=== PATIENT | male | born 1940 | race Two or more races ===

== ENCOUNTER 2020-09-26 15:17 | Inpatient (IN) | payer MEDICARE, MEDICAID ==
[~2020-09-26] VITALS: Ht 162.6 cm; Wt 64.0 kg
[2020-09-26 17:28] LABS: Basophils # (auto) 0.1 10 ^3/uL (0-0.2); Eosinophils # (auto) 0 10 ^3/uL (0-0.8); Eosinophils % (auto) 0.1 % (0.0-7.0); Red Cell Distribution Width 14.1 % (11.8-14.3)
[2020-09-26 17:33] LABS: Albumin 3.4 g/dL (3.4-5.0); Anion Gap 5 (5-15); Blood Urea Nitrogen 19 mg/dL (7-18); Calcium 8.9 mg/dL (8.5-10.1); Carbon Dioxide 26 mmol/L (21-32); Chloride 110 mmol/L (98-107); Glucose 119 mg/dL (74-106); Lipase 111 U/L (73-393); Potassium 3.7 mmol/L (3.5-5.1); Sodium 141 mmol/L (136-145)
[2020-09-26 17:34] LABS: Basophils % (auto) 0.5 % (0.0-2.0); Hematocrit 39.1 % (41.0-53.0); Hemoglobin 12.9 g/dL (13.5-17.5); Lymphocytes # (auto) 1.6 10 ^3/uL (0.4-5.4); Lymphocytes % (auto) 9.2 % (10.0-50.0); Mean Corpuscular Hgb Conc. 33.1 g/dL (32.0-36.0); Mean Corpuscular Volume 90.7 fL (80.0-100.0); Monocytes # (auto) 0.5 10 ^3/uL (0-1.3); Monocytes % (auto) 3.1 % (0.0-12.0); Neutrophils # (auto) 14.9 10 ^3/uL (1.6-8.6); Neutrophils % (auto) 87.1 % (37.0-80.0); Platelet Count (auto) 386 10^3/uL (140-450); Red Blood Cells 4.31 10^6/uL (4.5-5.90); White Blood Cell 17.1 10^3/uL (4.4-10.8)
[2020-09-26 17:42] LABS: Alanine Aminotransferase 25 U/L (16-61); Alkaline Phosphatase 147 U/L (45-117); Aspartate Aminotransferase 16 U/L (15-37); BUN/Creatinine Ratio 11.6; Bilirubin, Total 0.9 mg/dL (0.2-1.0); GFR African American 53 mL/min; GFR Non-African American 43 mL/min; Total Protein 7.5 g/dL (6.4-8.2)
[2020-09-26] MEDS ORDERED: cefTRIAXone 1GM/50ML D5W 50 ML IV ONE (21:45)
[2020-09-26] MEDS ORDERED: metroNIDAZOLE 500MG/100ML 100 ML IV ONE (21:45)
[2020-09-27] MEDS ORDERED: SODIUM CHLORIDE 0.9% 1,000 ML IV ONE (01:00)
[2020-09-27] MEDS ORDERED: PANTOPRAZOLE 40 MG/10 ML VIAL INJ IV ONE (01:00)
[2020-09-27] MEDS ORDERED: MORPHINE SULF INJ 2 MG/ML SYRINGE 1ML IV PRN (01:00)
[2020-09-27] MEDS ORDERED: ONDANSETRON HCL 4 MG/2 ML VIAL IV PRN (01:00)
[2020-09-27] MEDS ORDERED: NITROGLYCERIN 0.4 MG SL TAB SL PRN (01:00)
[2020-09-27] MEDS ORDERED: MORPHINE SULFATE 4 MG/ML SYR/VIAL IV PRN (01:00)
[2020-09-27] MEDS ORDERED: metroNIDAZOLE 500MG/100ML 100 ML IV SCH (06:00)
[2020-09-27] MEDS ORDERED: cefTRIAXone 1GM/50ML D5W 50 ML IV SCH (09:00)
[2020-09-27] MEDS: PANTOPRAZOLE 40 MG/10 ML VIAL INJ IV SCH (10:00)
[2020-09-27] MEDS ORDERED: OMNIPAQUE ORAL SOLN 500ml 12mg/ml PO ONE (10:07)
[2020-09-27 10:44] LABS: INR 1.06 (0.9-1.15); Partial Thromboplastin Time 35.3 sec (23.0-31.2)
[2020-09-27] MEDS: cefTRIAXone 1GM/50ML D5W 50 ML IV SCH (11:26)
[2020-09-27] MEDS: metroNIDAZOLE 500MG/100ML 100 ML IV SCH ×2 (11:30→19:00)
[2020-09-27] MEDS: SODIUM CHLORIDE 0.9% 1,000 ML IV SCH ×2 (15:00→15:03)
[2020-09-27 20:55] LABS: Urine Bacteria FEW /hpf (None Seen); Urine Blood 1+ /uL (Negative); Urine Hyaline Cast FEW /lpf (0 - 2); Urine Specific Gravity 1.011 (1.001-1.035); Urine WBC 3 /hpf (0 - 3)
[2020-09-28] MEDS: metroNIDAZOLE 500MG/100ML 100 ML IV SCH ×3 (07:23→19:31)
[2020-09-28] MEDS: SODIUM CHLORIDE 0.9% 1,000 ML IV SCH ×2 (07:23→19:30)
[2020-09-28] MEDS ORDERED: cloNIDine HCL 0.1 MG TAB PO ONE (08:30)
[2020-09-28] MEDS: cefTRIAXone 1GM/50ML D5W 50 ML IV SCH (08:43)
[2020-09-28 08:56] LABS: Basophils # (auto) 0.1 10 ^3/uL (0-0.2); Basophils % (auto) 0.5 % (0.0-2.0); Eosinophils # (auto) 0.1 10 ^3/uL (0-0.8); Eosinophils % (auto) 0.4 % (0.0-7.0); Hematocrit 38.1 % (41.0-53.0); Hemoglobin 12.2 g/dL (13.5-17.5); Lymphocytes # (auto) 1.8 10 ^3/uL (0.4-5.4); Lymphocytes % (auto) 12.3 % (10.0-50.0); Mean Corpuscular Hemoglobin 29.4 pg (28.0-32.0); Mean Corpuscular Volume 91.7 fL (80.0-100.0); Monocytes # (auto) 0.9 10 ^3/uL (0-1.3); Monocytes % (auto) 5.9 % (0.0-12.0); Neutrophils % (auto) 80.9 % (37.0-80.0); Platelet Count (auto) 350 10^3/uL (140-450); Red Blood Cells 4.16 10^6/uL (4.5-5.90); Red Cell Distribution Width 14.1 % (11.8-14.3); White Blood Cell 14.8 10^3/uL (4.4-10.8)
[2020-09-28 09:16] LABS: Calcium 8.9 mg/dL (8.5-10.1); Potassium 3.8 mmol/L (3.5-5.1)
[2020-09-28 09:19] LABS: Albumin 2.8 g/dL (3.4-5.0)
[2020-09-28 09:25] LABS: Bilirubin, Total 1.3 mg/dL (0.2-1.0); Total Protein 6.7 g/dL (6.4-8.2)
--- NOTE | 2020-09-28 15:40 | NUR ---
Patient transferred to unit in stable condition. Patient resting comfortably in bed with no distress noted at this time.
[2020-09-28] MEDS ORDERED: AMLO5TAB15 PO (16:42)
[2020-09-28] MEDS ORDERED: LISI-275 PO (16:42)
[2020-09-28] MEDS ORDERED: METF-370 PO (16:42)
[2020-09-28] MEDS ORDERED: INSUINJ18 SC (16:42)
[2020-09-28 18:00] VITALS: BP 164/78
--- NOTE | 2020-09-28 19:30 | NUR ---
Opening Shift Note Assumed care of patient, awake and alert. No S/S of distress/SOB or pain. Instructed on POC and to call for assist PRN, will continue to monitor for changes Q1hr and PRN.
--- NOTE | 2020-09-28 19:32 | NUR ---
Scheduled IV abx given per order. Patient stable; resting comfortably in bed with no distress noted. Endorsed to night nurse.
[2020-09-28 21:15] VITALS: BP 171/69
[2020-09-28] MEDS ORDERED: amLODIPine BESYLATE 5 MG TAB PO ONE (22:15)
[2020-09-28] MEDS ORDERED: LISINOPRIL 5 MG TAB PO ONE (22:15)
--- NOTE | 2020-09-28 22:17 | NUR ---
Patient BP was noted to be 171/69. No BP medication available, paged hospitalist. Received new orders to continue home medication. Will place order and administer accordingly. Will continue to monitor.
[2020-09-29] MEDS: metroNIDAZOLE 500MG/100ML 100 ML IV SCH ×3 (02:53→18:18)
[2020-09-29 05:00] VITALS: BP 157/66
[2020-09-29 05:53] LABS: Basophils # (auto) 0 10 ^3/uL (0-0.2); Basophils % (auto) 0.4 % (0.0-2.0); Eosinophils # (auto) 0.1 10 ^3/uL (0-0.8); Hematocrit 36.1 % (41.0-53.0); Hemoglobin 11.8 g/dL (13.5-17.5); Lymphocytes # (auto) 1.8 10 ^3/uL (0.4-5.4); Mean Corpuscular Hemoglobin 29.6 pg (28.0-32.0); Mean Corpuscular Hgb Conc. 32.8 g/dL (32.0-36.0); Mean Corpuscular Volume 90.5 fL (80.0-100.0); Monocytes # (auto) 0.8 10 ^3/uL (0-1.3); Monocytes % (auto) 6.4 % (0.0-12.0); Neutrophils # (auto) 9.4 10 ^3/uL (1.6-8.6); Neutrophils % (auto) 77.2 % (37.0-80.0); Nucleated Red Blood Cells % 0.1 %; Platelet Count (auto) 344 10^3/uL (140-450); Red Blood Cells 3.99 10^6/uL (4.5-5.90); Red Cell Distribution Width 14.4 % (11.8-14.3); White Blood Cell 12.2 10^3/uL (4.4-10.8)
[2020-09-29] MEDS: SODIUM CHLORIDE 0.9% 1,000 ML IV SCH ×2 (06:20→19:40)
--- NOTE | 2020-09-29 07:50 | NUR ---
Opening Shift Note Assumed care of patient, awake and alert. No S/S of distress/SOB or pain. Instructed on POC and to call for assist PRN, will continue to monitor for changes Q1hr and PRN. Bed alarm on for safety.
[2020-09-29 09:00] VITALS: BP 155/81
--- NOTE | 2020-09-29 09:31 | NUR ---
Assessment Patient is a 79-year-old male who is alert and oriented. Patient primary language is [place]. Prior to admission patient lived home with family and functioned independently. Prior to admission patient could care for his own ADL's. Patient has a walker with seat for home use. Per patient he will return home to his prior living arrangements post discharge and his brother will transport him home. Informed patient he has the right to participate in all discharge planning. Patient does not have an advance directive. Patient has been provided with information for an advanced directive. Patient verbalized understanding and agrees to discharge plan. Addendum: 09/29/20 at 0940 by BO CORTÉS Amended: Links added.
[2020-09-29] MEDS: cefTRIAXone 1GM/50ML D5W 50 ML IV SCH (09:53)
[2020-09-29] MEDS: PANTOPRAZOLE 40 MG/10 ML VIAL INJ IV SCH (09:53)
--- NOTE | 2020-09-29 12:04 | NUR ---
Nutrition Assessment Notes Please refer to link for full assessment notes. Est Energy needs: 4382-1412 kcals (20-23 kcal/kgBW) Est Protein needs: 64-70 gms/day (1.0-1.1 gm/kgBW) Will continue to monitor and reassess prn. Addendum: 09/29/20 at [address] Amended: Links added.
--- NOTE | 2020-09-29 12:30 | NUR ---
Elevated Blood Pressure Dr. Rodney notified that patient's blood pressure is 157/71 and was previously 155/81. No new orders received.
[2020-09-29 13:00] VITALS: BP 157/71
[2020-09-29 17:00] VITALS: BP 149/69
[2020-09-29 22:00] VITALS: BP 168/74
[2020-09-29] MEDS ORDERED: amLODIPine BESYLATE 5 MG TAB PO SCH (22:00)
[2020-09-29] MEDS ORDERED: LISINOPRIL 5 MG TAB PO SCH (22:00)
[2020-09-29 23:00] VITALS: BP 141/67
[2020-09-30] MEDS: metroNIDAZOLE 500MG/100ML 100 ML IV SCH ×2 (03:39→11:00)
[2020-09-30] MEDS: SODIUM CHLORIDE 0.9% 1,000 ML IV SCH (03:40)
[2020-09-30 05:00] VITALS: BP 178/78
--- NOTE | 2020-09-30 07:50 | NUR ---
Opening Shift Note Assumed care of patient, awake and alert to self. No S/S of distress/SOB or pain. Instructed on POC and to call for assist PRN, will continue to monitor for changes Q1hr and PRN. Bed alarm on for safety and call light placed within reach. Patient reoriented to place, time and situation.
[2020-09-30 09:00] VITALS: BP 157/75
[2020-09-30] MEDS: cefTRIAXone 1GM/50ML D5W 50 ML IV SCH (09:00)
[2020-09-30] MEDS: PANTOPRAZOLE 40 MG/10 ML VIAL INJ IV SCH (10:00)
[2020-09-30 11:02] LABS: Basophils # (auto) 0.1 10 ^3/uL (0-0.2); Basophils % (auto) 0.4 % (0.0-2.0); Eosinophils # (auto) 0.1 10 ^3/uL (0-0.8); Eosinophils % (auto) 0.6 % (0.0-7.0); Hematocrit 36.3 % (41.0-53.0); Hemoglobin 12.2 g/dL (13.5-17.5); Lymphocytes # (auto) 1.6 10 ^3/uL (0.4-5.4); Lymphocytes % (auto) 11.4 % (10.0-50.0); Mean Corpuscular Hemoglobin 30.5 pg (28.0-32.0); Mean Corpuscular Hgb Conc. 33.7 g/dL (32.0-36.0); Mean Corpuscular Volume 90.4 fL (80.0-100.0); Monocytes # (auto) 0.8 10 ^3/uL (0-1.3); Monocytes % (auto) 5.5 % (0.0-12.0); Neutrophils # (auto) 11.4 10 ^3/uL (1.6-8.6); Neutrophils % (auto) 82.1 % (37.0-80.0); Nucleated Red Blood Cells % 0.1 %; Platelet Count (auto) 393 10^3/uL (140-450); Red Blood Cells 4.01 10^6/uL (4.5-5.90); Red Cell Distribution Width 13.9 % (11.8-14.3); White Blood Cell 13.9 10^3/uL (4.4-10.8)
[2020-09-30] MEDS ORDERED: metroNIDAZOLE 500 MG TAB PO ONE (11:45)
[2020-09-30 13:00] VITALS: BP 166/76
--- NOTE | 2020-09-30 13:30 | NUR ---
Discharge Family member Holly, notified of patient's discharge. States he is at work but will have his son transport patient home at 1530.
[2020-09-30 13:58] VITALS: BP 157/75
--- NOTE | 2020-09-30 17:30 | NUR ---
Discharge instructions given as ordered. Encourage to follow up with PMD as instructed. All questions and concerns addressed. Patient verbalized understanding. Medication reconciliation form completed and copy given to patient. IV removed with catheter intact and pressure dressing applied. Telemetry unit returned to ICU. Patient taken to vehicle via wheelchair with all personal belongings, accompanied by staff. No distress noted at time of departure.
== END 2020-09-30 17:30 | disposition home or self-care (01) | DRG 872 ==
LOC: ER 15:17 → TELE 15:18 → EDBD 15:18 → TELE-CENTR 09-28 15:51
PROVIDERS: ADMIT Nurse Practitioner; ATTEND Family Medicine
DX: A41.9 Sepsis, unspecified organism (principal); N17.9 Acute kidney failure, unspecified; K52.9 Noninfective gastroenteritis and colitis, unspecified; I10 Essential (primary) hypertension; E11.9 Type 2 diabetes mellitus without complications; Z20.828 Contact with and (suspected) exposure to other viral communicable diseases; Z90.49 Acquired absence of other specified parts of digestive tract; N20.0 Calculus of kidney; N40.0 Benign prostatic hyperplasia without lower urinary tract symptoms; K57.30 Diverticulosis of large intestine without perforation or abscess without bleeding; I70.0 Atherosclerosis of aorta
CPT/HCPCS: 36415; 71045; 74176; 80053; 81001; 82150; 83605; 83690; 84484; 85025; 85610; 85730; 86850; 86900; 86901; 87040; 87426; C9113; G0378; J0696; J3490